=== PATIENT | male | born 2005 | race Caucasian/White ===

== ENCOUNTER 2024-03-24 22:12 | Inpatient (IN) | payer OTHER, SELFPAY ==
[2024-03-24 18:33] VITALS: BP 127/76
[2024-03-24 19:18] VITALS: BMI 25.7
--- NOTE | 2024-03-24 19:22 | EDRN ---
Pt has had RLQ abd pain since Wednesday that is mostly constant. Pt denies cp, sob, fever/chills/cough, n/v/d/c, weakness, dizziness. Pt's urine dark, says he has not been drinking water. Pt feels he has to push more to get the urine out. No hx
kidney stones, no flank pain.
[2024-03-24 19:29] LABS: Urine Albumin Trace (Neg - Trace); Urine Bilirubin 1+ (Negative); Urine Character Clear (Clear); Urine Color Amber; Urine Glucose Negative (Negative); Urine Ketone Trace (Negative); Urine Leukocyte Trace (Negative); Urine Nitrite Negative (Negative); Urine Occult Blood Negative (Negative); Urine Specific Gravity 1.025 (<1.030); Urine Urobilinogen 3+ (Neg - 1+)
--- NOTE | 2024-03-24 19:40 | ED.GENMED ---
History of Present Illness
General
Chief Complaint: Abdominal Pain
Source: patient
Exam Limitations: none
Time Seen by Provider: 03/24/24 19:17
History of Present Illness
History of Present Illness:
This is a 18 year old male that comes in with c/o right lower abd pain. States that this started on Wednesday night and it has continued to get worse. States that at one point it felt a little better and then got worse again. States that he he has
pain with walking. Denies any fever, chills, chest pain, SOB, nausea, vomiting, diarrhea, headache, dizziness, urinary burning.
Past History
Past History
ED Past Medical History: Psychiatric (Anxiety, ); Negative Asthma, HTN, Hypercholesterolemia or NIDDM
ED Past Surgical History: Other (Deviated septum)
Social History
Tobacco: Non-smoker
Alcohol: None
Personal: Single
Living: with family
Review of Systems
Review of Systems
All Other Systems: ROS reviewed and negative except as documented in HPI and ROS
Constitutional: Reports no symptoms; Denies fever or chills
EENT: Reports no symptoms
Respiratory: Reports no symptoms; Denies cough or trouble breathing
Cardiac: Reports no symptoms; Denies chest pain
ABD/GI: Reports abdominal pain; Denies nausea, vomiting or diarrhea
: Reports no symptoms; Denies dysuria, frequency or urgency
Musculoskeletal: Reports no symptoms
Skin: Reports no symptoms
Neurological: Reports no symptoms; Denies dizzy or headache
Psychiatric: Reports no symptoms
Phy Exam
General Physical Exam
General Presentation: well appearing and no apparent distress
General age: appears stated age
General Skin: warm and dry
General Habitus: normal
General Mental: alert
General Hydration: dry mucous membranes
ENT Exam
ENT Exam: TM's normal, pharynx normal and neck supple
Eye Exam
Eye Exam: EOMI
Cardiovascular Exam
Cardiovascular Exam: regular rate/rhythm, no edema, no murmur and normal peripheral pulses
Pulmonary Exam
Pulmonary Exam: lungs clear, no respiratory distress, no rales, chest non tender, no crackles, no rhonchi, no wheezing and no cough
Gastrointestinal Exam
Gastrointestinal Exam: normal bowel sounds, soft, no organomegaly, no pulsatile mass, non distended and tender (RLQ tenderness with palpation, negative for rebound tenderness)
Musculoskeletal Exam
Musculoskeletal Exam: full ROM and no edema
Skin Exam
Skin Exam: normal color, warm/dry, no rash and no petechia
Psychiatric Exam
Psychiatric Exam: normal mood/affect
Course
Orders/Labs/Results
Orders:
Orders
03/24/24 19:19
Urinalysis Reflex To Culture Urgent
Date Specimen was Collected: 03/24/24
Time Specimen was Collected: 19:16
Urine Microscopic Reflex Cult Urgent
03/24/24 19:32
IV Insert/Care/Rem.- Treatment PRN
03/24/24 19:39
Complete Blood Count/With Diff Urgent
Comprehensive Metabolic Panel Urgent
Lipase Urgent
03/24/24 19:40
CT Abd/pelvis W Iv Cont Urgent
Comment:
Reason For Exam: Right lower abd pain
0.9% Sodium Chloride 1000 ml [Nss] 1,000 ml IV BOLUS
Abnormal Lab Results
03/24/24 03/24/24
19:19 19:39
Absolute Monos (auto) 0.9 H 10^3/uL
(0.1-0.6)
Monocytes % 10.2 H %
(1.7-9.3)
Glucose 105 H mg/dl
(70-99)
Urine Ketones Trace A
(Negative)
Urine Bilirubin 1+ A
(Negative)
Urine Urobilinogen 3+ A
(Neg - 1+)
Leukocyte Esterase Rfl Trace A
(Negative)
Urine RBC 3-6 A /HPF
(0-2)
03/24/24 19:39
03/24/24 19:39
Glucose nonfasting. Urine negative for infection. Lipase normal at 49,
Vital Signs
Initial and Last Documented VS:
Initial Vital Signs
Temp Pulse Resp BP Pulse Ox
98.1 F 82 16 127/76 97
03/24/24 18:33 03/24/24 18:33 03/24/24 18:33 03/24/24 18:33 03/24/24 18:33
Last Documented Vital Signs
Temp Pulse Resp BP Pulse Ox
98.1 F 78 14 116/68 97
03/24/24 18:33 03/24/24 20:00 03/24/24 20:00 03/24/24 20:00 03/24/24 18:33
MDM/Problems Addressed
Differential Diagnosis Includes:
Appendicitis, Renal calculus
MDM/Problems Addressed:
This is a 18 year old male that come sin with c/o right lower abd pain. States that this started on Wednesday night and it got better and then came back.
Will get labs. Urine and CT scan. IV fluids. Offered patient medication for pain but patient refused
Back into see patient and dad. Explained that his CT shows that has an acute appendicitis. Will admit patient. Dr. Garcia notified and will have [facility] [employer] admit and start on antibiotics.
Chronic conditions affecting care:
NA
Acute Exacerbation and/or Progression of Chronic Illness:
NA
*Radiology
Radiology exam reviewed: radiology read reviewed (CT-Findings suggesting acute appendicitis. NO evidence of perforation or abscess formation. )
*Pulse Oximetry
Patient hypoxic: no
*EKG
Interpreted by ED Provider?: NA
Rate: EKG- N/A
*Robotic Welding Operator Interpretation
Rate: Robotic Welding Operator- N/A
*Critical Care Note
Total Time (30-74mins, 75-104mins- exclusive of procedures): Not Applicable
ED Attending Note
-
Portions of this chart may have been created with voice recognition software.� Occasional wrong word or��sound alike� substitutions may have occurred due to the inherent limitations of voice recognition software.
Discharge Plan
Departure
Patient Disposition: Admit
Date of Disposition: 03/24/24
Time of Disposition: 21:20
Admit to: Med/Surg
Presentation/result/management discussed w/ accepting /DO: Dr. Garcia
Patient with high blood pressure during this ER visit?: No
Condition: Good
Covid-19: Not Applicable
Discharge Problem:
Acute appendicitis
Prescriptions:
No Action
escitalopram oxalate [Lexapro] 10 mg Tablet
15 mg PO DAILY
Referrals:
Josh eBaver DO [Family Provider] -
Interventions
Interventions:
*Risk Screen - Suicide Last Done: 03/24/24 19:18
*General Assessment Last Done: 03/24/24 19:18
*Neglect/Abuse Screening Last Done: 03/24/24 19:18
*ED COVID-19 Vaccine History Last Done: 03/24/24 19:18
KN-Tizeii-Yufsmkyhsc Assessment Last Done: 03/24/24 19:22
Discharge Date and Time
Print Language: [place]
[2024-03-24] MEDS: NSS 1000 IV (19:42)
[2024-03-24 19:50] LABS: Urine Mucus Few
[2024-03-24 19:50] LABS: % Basophils 0.2 % (0-2); % Eosinophils 1.3 % (0-6); % Immature Granulocytes 0.2 % (0-0.5); % Lymphocytes 29.6 % (20.5-51.1); % Monocytes 10.2 % (1.7-9.3); % Neutrophils 58.5 % (42.2-75.2); Absolute Eosinophils 0.1 10^3/uL (0-0.7); Absolute Lymphocytes 2.6 10^3/uL (1.2-3.4); Absolute Monocytes 0.9 10^3/uL (0.1-0.6); Absolute Neutrophils 5.1 10^3/uL (1.4-6.5); Hematocrit 43.3 % (39.0-52.0); Hemoglobin 14.8 g/dL (13.0-18.0); Mean Corp Hgb Conc. 34.2 g/dL (33.0-37.0); Mean Corpuscular Hgb 28.4 pg (27.0-31.0); Mean Platelet Volume 9.9 fL (7.4-10.4); Nucleated Red Blood Cells % 0 % (-); Platelet Count 336 10^3/uL (130-400); Red Blood Cell Count 5.22 10^6/uL (4.70-6.10); Red Cell Dist. Width 13.3 % (11.5-14.5); White Blood Cell Count 8.7 10^3/uL (4.8-10.8)
[2024-03-24 19:51] LABS: Urine Calcium Oxalate Crystals Present; Urine White Cell None Seen /HPF (0-5)
[2024-03-24 20:00] VITALS: BP 116/68
[2024-03-24 20:09] LABS: ALT (SGPT) 14 U/L (0-50); AST (SGOT) 20 U/L (17-59); Albumin 4.6 g/dl (3.5-5.0); Alkaline Phosphatase 80 U/L (38-126); Blood Urea Nitrogen 11 mg/dl (9-20); Calcium 9.8 mg/dl (8.4-10.2); Carbon Dioxide 30 mmol/L (22-30); Chloride 101 mmol/L (98-107); Estimated Creatinine Clearance > 125 ml/min; Glucose 105 mg/dl (70-99); Lipase 49 U/L (23-300); Potassium 4.2 mmol/L (3.5-5.1); Sodium 140 mmol/L (135-145); Total Bilirubin 0.4 mg/dl (0.2-1.3); Total Protein 7.5 g/dl (6.3-8.2); eGFR > 60.00
[2024-03-24 20:50] VITALS: BP 132/75; BMI 25.8
[2024-03-24] MEDS: TORADOL 15 MG IV (21:49)
[2024-03-24] MEDS: ZOSYN 50 IV (21:54)
[2024-03-24 21:58] VITALS: BP 119/65
--- NOTE | 2024-03-24 23:15 | PTCARENOTE ---
patient arrived to 2S from ED, accompanied by parents. Patient AAOx3, no needs at this time, no c/o pain. Pt. oriented to room, plan of care explained to pt and parents. All questions answered. Assessment on going.
--- NOTE | 2024-03-24 23:42 | HPS.HSE ---
Addendum entered and electronically signed by Cecilio Garcia MD 03/25/24 08:58:
I saw and examined the patient.
The dental practitioner note was reviewed and I agree with the note.
Comment:
History, vitals, labs, imaging reviewed. Patient seen and examined.
18-year-old healthy male with acute nonperforated appendicitis. No leukocytosis. Localized guarding in the right lower quadrant. Imaging shows no appendicolith and no perforation. Discussed situation with the patient and his family at the
bedside. Risks and benefits for described of laparoscopic appendectomy which is my recommendation. Risks covered included but are not limited to bleeding, infection, staple line leak, bowel or solid organ injury, conversion open, and anesthetic
risk. The patient agreed to proceed.
Original Note:
Family Physician
-
Family Physician: Josh Beaver
Chief Complaint
-
'Abdominal pain'
History of Present Illness
18 y/o patient presents to ER with the complaint of abdomen pain. Reports pain started Wednesday night at Right lower quadrant, and continued ever since, worsening over the time. Describes pain as 'pressure' which is worsened with movement. LBM
03/24, voiding without any difficulties, no blood noted in stool or urine. Denies nausea, vomiting, fever, chills, chest pain or shortness of breath.
Medical History
Past Medical History
Past Medical History: Reports Psychiatric (anxiety)
Past Surgical History: Reports Other (fixed deviated septum )
Social History
Tobacco: Non-smoker
Alcohol: None
Drug: None
Living: With Family
Family History
Family History: Not pertinent
Allergies / Home Medications
Allergies reflects when Allergies were last updated in [facility].
Home Medications with original date entered in [facility]
Allergy/Medication List:
Allergies
Allergy/AdvReac Type Severity Reaction Status Date / Time
No Known Allergies Allergy Verified 03/24/24 19:33
Home Medications
escitalopram oxalate 10 mg tablet (Lexapro) 15 mg PO DAILY Depression 10/23/22
Review of Systems
-
History Source: Patient
A 12 point ROS was completed and negative except as noted: Yes
Constitutional: Reports No Symptoms
EENT: Reports No Symptoms
Respiratory: Reports No Symptoms
Cardiac: Reports No Symptoms
Abdomen/GI: Reports Abdominal Pain
: Reports No Symptoms
Musculoskeletal: Reports No Symptoms
Skin: Reports No Symptoms
Neurological: Reports No Symptoms
Endocrine: Reports No Symptoms
Hematologic/Lymphatic: Reports No Symptoms
Psych: Reports No Symptoms
Physical Exam
Vital Signs
Vital Signs
Temp Pulse Resp BP Pulse Ox
98.1 F 89 16 119/65 100
03/24/24 18:33 03/24/24 21:58 03/24/24 21:58 03/24/24 21:58 03/24/24 21:58
Physical Exam
General: Well Developed, Well Nourished and No Apparent Distress
HEENT: NormoCephalic, Moist mucous membranes and Atraumatic
Respiratory: Clear
Cardiac: S1/S2 and Regular Rhythm
Breast: Deferred by me
GI: Soft, Non Distended, Normal Bowel Sounds and Tender (RLQ)
Rectal: Deferred by Provider
Genito-urinary: Deferred by me
Musculoskeletal: No Clubbing, No Cyanosis and No Edema
Skin: Warm and Dry
Neuro: Awake, AO x 3 and Nonfocal/grossly intact
Hematologic/Lymphatic: No Lymphadenopathy
Psych: Calm and Intact Judgment/Insight
Laboratory Results
-
03/24/24 19:39
03/24/24 19:39
Laboratory Results
Total Bilirubin 0.4 mg/dl (0.2-1.3) 03/24/24 19:39
AST 20 U/L (17-59) 03/24/24 19:39
ALT 14 U/L (0-50) 03/24/24 19:39
Alkaline Phosphatase 80 U/L (38-126) 03/24/24 19:39
Lipase 49 U/L (23-300) 03/24/24 19:39
Data Reviewed
-
CT Scan: Report Reviewed by me
Lab Data: Labs Reviewed by me
Impression/Plan
-
18 y/o patient with complaint of Abdomen pain
# Abdomen pain likely due to Appendicitis
-CT abd/pelvis: Findings suggesting acute appendicitis. No evidence of perforation or abscess formation.
-Continue IV Zosyn
-Refusing pain medications
-NPO after MN
-Admit to Dr. Garcia
Full Code
DVT Prophylaxis: SCD's
[2024-03-25] VITALS (8 sets, daily range): BP systolic 91–124; BP diastolic 34–72
[2024-03-25] MEDS: ZOSYN 50 IV ×4 (04:21→21:01)
[2024-03-25 07:39] LABS: Hematocrit 41.4 % (39.0-52.0); Hemoglobin 13.7 g/dL (13.0-18.0); Mean Corp Hgb Conc. 33.1 g/dL (33.0-37.0); Mean Corpuscular Volume 84.5 fL (80.0-94.0); Platelet Count 307 10^3/uL (130-400); Red Cell Dist. Width 13.4 % (11.5-14.5); White Blood Cell Count 7.9 10^3/uL (4.8-10.8)
[2024-03-25 08:23] LABS: Blood Urea Nitrogen 10 mg/dl (9-20); Calcium 9.4 mg/dl (8.4-10.2); Carbon Dioxide 26 mmol/L (22-30); Chloride 105 mmol/L (98-107); Estimated Creatinine Clearance 110 ml/min; Glucose 90 mg/dl (70-99); Sodium 143 mmol/L (135-145); eGFR > 60.00
--- NOTE | 2024-03-25 10:30 | CM ---
Reviewed the chart notes and spoke with the patient's parents at the bedside. The patient resides with his mother in a two story home with no steps to enter. The patient reports no DME/VN/SNF in the past. The patient confirmed his pharmacy of
choice is the [address] CM continues to be available to patient/family and is monitoring medical plan for needs at discharge.
Plan: Discharge to home when medically stable. No anticipated needs identified.
--- NOTE | 2024-03-25 14:16 | W.IMMPOSTOP ---
Surgical Immed Post Op Note
-
Primary Surgeon: Jason Garcia MD
Assisting Surgeon: none
Pre-op Diagnosis: acute appendicitis
Post-op Diagnosis: same
Procedure Performed: laparoscopic appendectomy
Anesthesia Type: general plus local
Specimen / Cultures: appendix
Estimated Blood Loss: 10 cc
Complications: no immediate
Operative Findings: nonperforated inflamed appendix
Will send back to floor; advance diet in anticipation of discharge tomorrow am.
--- NOTE | 2024-03-25 15:12 | PTCARENOTE ---
Patient received from PACU in bed; Three laparoscopic sites open to air with surgical glue present; Patient drowsy but awakens to voice; Call roberson within reach; Family at bedside; Bed in lowest position, wheels locked; Patient's states his abdomen
is uncomfortable but is tolerable; Assessment ongoing
[2024-03-25] MEDS: NORCO 5/325 1 TABLET PO ×2 (16:57→21:01)
[2024-03-26 03:26] VITALS: BP 112/58
[2024-03-26] MEDS: ZOSYN 50 IV ×2 (04:13→10:28)
[2024-03-26] MEDS: NORCO 5/325 1 TABLET PO (07:30)
[2024-03-26 07:50] VITALS: BP 105/62
[2024-03-26] MEDS: FLUSH (NSS) 2 FLUSH IV (10:28)
[2024-03-26 11:15] VITALS: BP 103/64
--- NOTE | 2024-03-26 11:50 | W.PN.CRS1 ---
Today's Communication / Plan
-
discharge
Assessment/Plan
-
POD#1 appendectomy
- Vitals normal
- Tolerating a diet
- OKay for discharge today, discharged instructions discussed with patient and family
Subjective Data
Procedure
03/25/24- appendectomy
Subjective Data
Date of Service: March 26, 2024
Patient states he feels well. He is tolerating a diet. He has no nausea or vomiting. His pain is controlled.
Objective Data
-
Vital Signs
Temp Pulse Resp BP Pulse Ox
98.7 F 74 14 103/64 100
03/26/24 11:15 03/26/24 11:15 03/26/24 11:15 03/26/24 11:15 03/26/24 11:15
Intake & Output
03/25/24 03/26/24 03/27/24
06:59 06:59 06:59
Intake Total 50 / 50 1060 / 1060
Balance 50 / 50 1060 / 1060
Intake:
Oral fluids 760 / 760
IV fluids (Total) 100 / 100
normosol 100 / 100
IV piggybacks 50 / 50 200 / 200
Other:
Number of approximated MODERATE 3
amounts of urine
Number of approximated LARGE 1
amounts of urine
Lab Results
03/25/24 06:57
03/25/24 06:57
Physical Exam
-
General: No Acute Distress and AOx3
Abdomen: Soft, Non Distended and Non Tender
Skin: Warm and Dry
Incision: Clear, Dry, Intact
--- NOTE | 2024-03-26 11:55 | W.DS.TRANS ---
DC Summary - Size Cutter
-
Discharge Instructions:
Discharge Diagnosis/Procedures Appendicitis
Diet Regular
Activity No strenuous activity
Driving Restrictions No driving for 1 week
Bathing Restrictions OK to Shower
Wound Care Allow glue to naturally fall off. Do not pick at
incision.
Instructions: Appendectomy, Laparoscopic Surgery (DC)
Stand-Alone Forms: Back to School
Changes to Home Medications: No
Discharge Medications:
DC Medications w/original date entered in [employer]
escitalopram oxalate 10 mg tablet (Lexapro) 15 mg PO DAILY Depression 10/23/22
Home Medication Changes
Pending Results: Yes
Additional Pending Results:
pathology
== END 2024-03-26 12:33 | disposition home or self-care (01) | DRG 399 ==
LOC: 2 SOUTH 22:12
PROVIDERS: Clinical Nurse Specialist Family Health; Emergency Medicine; Nurse Practitioner Gerontology; ADMITTING PHYSICIAN Surgery; EMERGENCY PHYSICIAN Student in an Organized Health Care Education/Training Program; FAMILY PHYSICIAN Family Medicine
PROC: 0DTJ4ZZ Resection of Appendix, Percutaneous Endoscopic Approach (ICD-10-PCS; 2024-03-25)
DX: K35.80 Unspecified acute appendicitis (principal); I10 Essential (primary) hypertension; E11.9 Type 2 diabetes mellitus without complications; K66.0 Peritoneal adhesions (postprocedural) (postinfection); E78.00 Pure hypercholesterolemia, unspecified; F41.9 Anxiety disorder, unspecified; Z79.899 Other long term (current) drug therapy
CPT/HCPCS: 88304; 74177; 80048; 80053; 81003; 81015; 83690; 85025; 85027; 96361; 96365; 96375; 99285; C1776; Q9967